=== PATIENT | male | born 1990 | race Hispanic/Latino ===

== ENCOUNTER 2019-11-14 07:56 | Emergency (ER) | payer BC ==
[~2019-11-14] VITALS: Ht 172.7 cm; Wt 122.5 kg
--- OUTSIDE RECORDS SUMMARY | 2019-11-14 07:58 | XMS REPORT ---
Author Author [facility] Organization [facility] Address [address] [place] [address] Phone Unavailable Care Team Providers Care Paid Intern Name Role Phone Unavailable Unavailable Payers Payer Name Policy Type Policy Number Effective Date Expiration Date S ource Problems This patient has no known problems. Allergies, Adverse Reactions, Alerts Allergy Name Allergy Type Status Severity Reaction(s) Onset Date Inacti ve Date Treating Clinician Comments Source Sulfa (Sulfonamide Antibiotics) DA Active U 2018-11-12 00 :00:00 [facility] Sulfa (Sulfonamide Antibiotics) DA Active U 2016-12-30 00 :00:00 [facility] Medications This patient has no known medications. Procedures This patient has no known procedures. Results Test Description Test Time Test Comments Results Result Comments Source - XR TIBIA/FIBULA 2 V LT 2018-11-12 14:28:00 FA X: Theo Akins [place]: B St: REG -- Name: LINDSAY SALAZAR [facility] : 1990 Age/S: 28/M [address] Unit #: [id number] Loc: [place] [address] Phys: Theo Akins MD Acct: [id number] Dis Date: Status: REG ER PHONE #: [phone] Exam Date: 11/12/2018 1415 FAX #: [phone] Reason: post reduction EXAMS: CPT CODE: [id number] XR TIBIA/FIBUL[place] 2 [place] [address] REASON FOR EXAM: post reduction EXAM ORDER DATE: 11/12/2018 2:12 PM Ordering Nalini: Theo Akins MD PROCEDURE: - XR TIBIA/FIBULA 2 V LT FINDINGS: 4 views of the left lower extremity were obtained. IMPRESSION: Near anatomical alignment of the left ankle status post reduction of complex left ankle fracture at 1426 Reported and signed by: Howard Burnham M.D. CC: Theo Akins MD Technologist: Jose MCCARTHY(R) Trnscrd Date/Time/By: 11/12/2018 (2276) : By: [email or web address] Orig Print D/T: S: 11/12/2018 (7185) PAGE 1 Signed Report - XR ANKLE 3 + V LT 2018-11-12 11:18:00 FAX: Sarah Vergara NP [place]: St: REG -- Name: LINDSAY SALAZAR [facility] : 1990 Age/S: 28/M [address] [facility] Unit #: [id number] Loc: [place] [address] Phys: Sarah Vergara NP Acct: [id number] Dis Date: Status: REG ER PHONE #: [phone] Exam Date: 11/12/2018 1055 FAX #: [phone] Reason: fall, pain EXAMS: CPT CODE: [id number] XR ANKLE 3 + [place] [address] HISTORY: Injured left ankle pain. COMPARISON: None available. AP and lateral view of the left leg and 3 views of the left ankle: Acute traumatic transverse fracture of the distal fibula. Lateral displacement of the distal fracture fragment and inferior displacement of the proximal fracture fragment. Disrupted ankle mortise with medial displacement of the tibia in relation to the talus. No osteochondral lesion of the talus. Moderate joint fluid. Knee joint is preserved. Articular surfaces are preserved within the knee. No knee joint fluid. IMPRESSION: Acute traumatic transverse fracture of the distal fibula with lateral displacement of the distal fracture fragment and inferior displacement of the proximal fragment. Complete disruption of the ankle mortise with medial displacement of the tibia in relation to the talus. Joint fluid. 3 views of the left foot: No acute fracture or dislocation of the foot. Joint spaces are preserved. Articular surfaces are well marginated. IMPRESSION: No acute fracture or dislocation. Joint spaces are preserved. at 1118 Reported and signed by: Dixon Dallas M.D. CC: Sarah Vergara NP Technologist: Nilson MCCARTHY(R)(CT) Trncord Date/Time/By: 11/12/2018 (1118) : By: [email or web address] Orig Print D/T: S: 11/12/2018 (1126) PAGE 1 Signed Report - XR FOOT 3 + V LT 2018-11-12 11:18:00 FAX: Sarah Vergara NP [place]: St: REG -- Name: SALAZARLINDSAY [facility] : 1990 Age/S: 28/M [address] Unit #: [id number] Loc: [place] [address] Phys: Sarah Vergara NP Acct: [id number] Dis Date: Status: REG ER PHONE #: [phone] Exam Date: 11/12/2018 1055 FAX #: [phone] Reason: fall, pain EXAMS: CPT CODE: [id number] XR FOOT 3 + [place] [address] HISTORY: Injured left ankle pain. COMPARISON: None available. AP and lateral view of the left leg and 3 views of the left ankle: Acute traumatic transverse fracture of the distal fibula. Lateral displacement of the distal fracture fragment and inferior displacement of the proximal fracture fragment. Disrupted ankle mortise with medial displacement of the tibia in relation to the talus. No osteochondral lesion of the talus. Moderate joint fluid. Knee joint is preserved. Articular surfaces are preserved within the knee. No knee joint fluid. IMPRESSION: Acute traumatic transverse fracture of the distal fibula with lateral displacement of the distal fracture fragment and inferior displacement of the proximal fragment. Complete disruption of the ankle mortise with medial displacement of the tibia in relation to the talus. Joint fluid. 3 views of the left foot: No acute fracture or dislocation of the foot. Joint spaces are preserved. Articular surfaces are well marginated. IMPRESSION: No acute fracture or dislocation. Joint spaces are preserved. at 1118 Reported and signed by: Dixon Dallas M.D. CC: Sarah Vergara NP Technologist: Nilson MCCARTHY(R)(CT) Trncord Date/Time/By: 11/12/2018 (1118) : By: [email or web address] Orig Print D/T: S: 11/12/2018 (112) PAGE 1 Signed Report - XR TIBIA/FIBULA 2 V LT 2018-11-12 11:18:00 FA X: Sarah Vergara NP [place]: St: REG -- Name: SALAZARLINDSAY [facility] : 1990 Age/S: 28/M [address] [facility] Unit #: [id number] Loc: [place] [address] Phys: Sarah Vergara NP Acct: [id number] Dis Date: Status: REG ER PHONE #: [phone] Exam Date: 11/12/2018 1055 FAX #: [phone] Reason: fall, pain EXAMS: CPT CODE: [id number] XR TIBIA/FIBULA 2 [place] [address] HISTORY: Injured left ankle pain. COMPARISON: None available. AP and lateral view of the left leg and 3 views of the left ankle: Acute traumatic transverse fracture of the distal fibula. Lateral displacement of the distal fracture fragment and inferior displacement of the proximal fracture fragment. Disrupted ankle mortise with medial displacement of the tibia in relation to the talus. No osteochondral lesion of the talus. Moderate joint fluid. Knee joint is preserved. Articular surfaces are preserved within the knee. No knee joint fluid. IMPRESSION: Acute traumatic transverse fracture of the distal fibula with lateral displacement of the distal fracture fragment and inferior displacement of the proximal fragment. Complete disruption of the ankle mortise with medial displacement of the tibia in relation to the talus. Joint fluid. 3 views of the left foot: No acute fracture or dislocation of the foot. Joint spaces are preserved. Articular surfaces are well marginated. IMPRESSION: No acute fracture or dislocation. Joint spaces are preserved. at 1118 Reported and signed by: Dixon Dallas M.D. CC: Sarah Vergara NP Technologist: Nilson Jackson RT(R)(CT) Trnscrd Date/Time/By: 11/12/2018 (1118) : By: [email or web address] Orig Print D/T: S: 11/12/2018 (1122) PAGE 1 Signed Report
[2019-11-14] MEDS ORDERED: CYCLOBENZAPRINE10 MG PO (08:14)
[2019-11-14] MEDS ORDERED: NAPROSYN500 MG PO (08:14)
[2019-11-14] MEDS ORDERED: KETOROLAC TROMETHAMINE 60 MG/2 ML VIAL IM ONE (08:15)
[2019-11-14] MEDS ORDERED: KETOROLAC TROMETHAMINE 60 MG/2 ML VIAL ONE (08:18)
[2019-11-14] MEDS ORDERED: medrol dose pak (08:32)
--- NOTE | 2019-11-14 08:34 | Emergency Department Note ---
History of Present Illnes History of Present Illness Chief Complaint: Back Pain Stated Complaint: LOWER BACK History of Present Illness This is a 29 year old male LBP x 2-3 years, worse in past 1 month left lower back radiating to left buttocks. 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 Any updates have been documented here. Past Medical History Recent Fever: No Clinical Suspicion of Infectio: No New/Unexplained Change in Ment: No Past Medical History: None Other Surgery: LEFT ANKLE Social History Smoking Cessation: Never Smoker Counseling Performed: No Alcohol Use: Occasional Any Illegal Drug Use: No TB Exposure/Symptoms: No Physically hurt or threatened: No Family History Family history of heart diseas: No Other Last Tetanus: UNKNOWN Any Pre-Existing Lines (PICC,: No Is patient up to date on immun: Yes Last Flu: OOD Last Pneumovax: NA Review of Systems Review of Systems Constitutional: no symptoms EENTM: no symptoms Cardiovascular: no symptoms Respiratory: no symptoms Gastrointestinal: no symptoms Genitourinary: no symptoms Musculoskeletal: no symptoms Integumentary: no symptoms Neurological: no symptoms Psychological: no symptoms Endocrine: no symptoms Hematological/Lymphatic: no symptoms Review of other systems All other systems reviewed and negative. Physical Exam Related Data Allergies: Coded Allergies: Sulfa (Sulfonamide Antibiotics) (Verified Allergy, Mild, RASH, 11/14/19) Triage Vital Signs Vital Signs Date Time Temp Pulse Resp B/P (MAP) Pulse Ox O2 Delivery O2 Flow Rate FiO2 11/14/19 08:00 96.4 69 16 156/84 97 Physical Exam CONSTITUTIONAL Constitutional: well-developed, well-nourished HENT HENT: normocephalic, atraumatic, oropharynx clear/moist, nose normal HENT - Ear: left ext ear normal, right ext ear normal EYES Eyes: PERRL, conjunctivae normal NECK Neck: ROM normal PULMONARY Pulmonary: effort normal, breath sounds normal CARDIOVASCULAR Cardiovascular: regular rhythm, heart sounds normal, capillary refill normal, normal rate GASTROINTESTINAL Abdominal: soft, nontender, bowel sounds normal GENITOURINARY Genitourinary: exam deferred SKIN Skin: warm, dry MUSCULOSKELETAL mild tenderness left lower lumbar area and at left SI joint Musculoskeletal: ROM normal NEUROLOGICAL normal gait Neurological: alert, oriented x 3, DTRs normal, no gross motor or sensory deficits PSYCHOLOGICAL Psychiatric/behavioral: mood/affect normal, judgement normal Assessment & Plan Assessment & Plan Problems: (1) Back pain (2) Sciatica Assessment & Plan Back pain, Sciatica Depart Disposition: HOME, SELF-CARE Last Vital Signs Date Time Temp Pulse Resp B/P (MAP) Pulse Ox O2 Delivery O2 Flow Rate FiO2 11/14/19 08:00 96.4 69 16 156/84 97 Home Meds Active Scripts [medrol dose carroll] No Conflict Check, 4 MG for 6 Days Prov:BRAYAN RAMOS MD 11/14/19 Naproxen (NAPROSYN) 500 Mg Tablet, 500 MG PO BID, #20 TAB Prov:BRAYAN RAMOS MD 11/14/19 Cyclobenzaprine Hcl (CYCLOBENZAPRINE HCL) 10 Mg Tablet, 10 MG PO BID PRN for PAIN, #14 TAB 0 Refills Prov:BRAYAN RAMOS MD 11/14/19 Medications in the ED Ketorolac Tromethamine 60 mg ONCE ONCE IM Last administered on 11/14/19at 08:15; Admin Dose 60 MG; Start 11/14/19 at 08:15; Stop 11/14/19 at 08:16; Status DC Ketorolac Tromethamine 60 mg STK-MED ONCE .ROUTE ; Start 11/14/19 at 08:18; Stop 11/14/19 at 08:12; Status DC BRAYAN RAMOS MD November 14, 2019 08:34
== END 2019-11-14 08:23 | disposition home or self-care (01) ==
LOC: ER 07:56
DX: M54.42 Lumbago with sciatica, left side (principal)
CPT/HCPCS: 99283; J1885

== ENCOUNTER 2021-09-16 09:08 | Emergency (ER) | payer BC ==
[~2021-09-16] VITALS: Ht 172.7 cm; Wt 122.5 kg
[~2021-09-16 09:08] MED LIST: CYCLOBENZAPRINE10 MG PO; NAPROSYN500 MG PO; medrol dose pak
[2021-09-16] MEDS ORDERED: KETOROLAC TROMETHAMINE 30 MG/ML VIAL IM STA (09:12)
== END 2021-09-16 10:26 | disposition home or self-care (01) ==
LOC: ER 09:34
DX: J02.9 Acute pharyngitis, unspecified (principal); R51.9 Headache, unspecified; Z20.822 Contact with and (suspected) exposure to COVID-19
CPT/HCPCS: 83518; 87070; 99283; J1885; U0002